=== PATIENT | male | born 1955 | race Caucasian/White ===

== ENCOUNTER → 2016-05-20 | Outpatient (CLI) | payer OTHER | END | disposition home or self-care (01) | LOC: LABPAT 10:33 | PROVIDERS: ATTEND Orthopaedic Surgery | DX: Z01.812 Encounter for preprocedural laboratory examination (principal) | CPT/HCPCS: 87070 ==

== ENCOUNTER 2016-06-02 05:49 | Inpatient (IN) | payer OTHER ==
[2016-05-22 13:50] VITALS: BMI 45.9
[~2016-06-02 05:49] MED LIST: DEXAMETHASONE SOD PHOSPHATE 10 MG/ML 1 ML VIAL IV ONE; LACTATED RINGERS 1,000 ML IV SCH; LIDOCAINE 1% 20 ML VIAL (10MG/ML) FOR IV START INTRADERMA PRN; MIDAZOLAM 2 MG/2 ML VIAL IV PRN; SCOPOLAMINE 1.5MG/72HR PATCH TRANSDERM ONE; ceFAZolin 3 GM in SODIUM CHLORIDE 0.9% 100 ML IVPB ONE
[2016-06-02] MEDS: ONDANSETRON 4 MG/2 ML VIAL IVP ONE ×2 (06:39→10:18)
[2016-06-02] MEDS ORDERED: HYDROmorphone (PF) 1 MG/ML ONE (07:14)
[2016-06-02] MEDS ORDERED: LIDOCAINE 1% INJ 10MG/ML (20 ML MDV) ONE (07:14)
[2016-06-02] MEDS ORDERED: PHENYLEPHRINE-0.9% NACL SYG 1 MG/10 ML SYRINGE ONE (07:14)
[2016-06-02] MEDS ORDERED: KETAMINE 10 MG/ML 20 ML VIAL ONE (07:14)
[2016-06-02] MEDS ORDERED: SUCCINYLCHOLINE CHLORIDE 100 MG/5 ML SYR IV ONE (07:14)
[2016-06-02] MEDS ORDERED: PROPOFOL 10 MG/ML 20 ML VIAL IV ONE (07:14)
[2016-06-02] MEDS ORDERED: ROCURONIUM BROMIDE 10 MG/ML 10 ML VIAL IV ONE (07:14)
[2016-06-02] MEDS ORDERED: NEOSTIGMINE 1 MG/ML 10 ML VIAL ONE (07:14)
[2016-06-02] MEDS ORDERED: fentaNYL (PF) 50 MCG/ML 2 ML AMP ONE (07:14)
[2016-06-02] MEDS ORDERED: GLYCOPYRROLATE 0.2 MG/ML 2 ML VIAL ONE (07:14)
[2016-06-02] MEDS ORDERED: MIDAZOLAM 2 MG/2 ML VIAL ONE (07:14)
[2016-06-02 07:25] LABS: Mean Platelet Volume 7.4
[2016-06-02 07:39] LABS: INR 1.2 (<1.1); Prothrombin Time 11.7 sec (9.0-12.0)
[2016-06-02] MEDS ORDERED: LACTATED RINGERS 1,000 ML IV ONE (08:00)
[2016-06-02] MEDS ORDERED: BISACODYL 10 MG SUPP RECTAL PRN (09:55)
[2016-06-02] MEDS ORDERED: MAGNESIUM HYDROXIDE 2,400 MG/10 ML CUP PO PRN (09:55)
[2016-06-02] MEDS ORDERED: TEMAZEPAM 15 MG CAP PO PRN (09:55)
[2016-06-02] MEDS ORDERED: NALOXONE 0.4 MG/ML 1 ML VIAL IV PRN (09:55)
[2016-06-02] MEDS ORDERED: NA PHOS,M-B/NA PHOS,DI-BA 133 ML ENEMA RECTAL PRN (09:55)
[2016-06-02] MEDS ORDERED: ONDANSETRON 4 MG/2 ML VIAL IVP PRN (09:55)
[2016-06-02] MEDS ORDERED: HYDROmorphone 1 MG/ML 1 ML SYRINGE IVP PRN ×3 (09:55)
[2016-06-02] MEDS: HYDROmorphone 1 MG/ML 1 ML SYRINGE IVP PRN ×4 (10:18→10:35)
[2016-06-02] MEDS ORDERED: KETOROLAC 30 MG/ML 1 ML VIAL IVP ONE (10:18)
--- NOTE | 2016-06-02 10:32 | XR ---
EXAMINATION TYPE: XR knee limited LT DATE OF EXAM: 06/02/2016 10:23 AM CLINICAL HISTORY: Postoperative evaluation Two views of the left knee are submitted. Identified are changes of total knee arthroplasty with fem oral and tibial components appearing well seated. Postsurgical soft tissue changes are noted. Align ment is anatomic.
[2016-06-02] MEDS: MEPERIDINE 50 MG/ML SYRINGE IVP ONE ×2 (10:53→10:55)
[2016-06-02] MEDS: LACTATED RINGERS 1,000 ML IV SCH ×2 (12:09→21:48)
[2016-06-02] MEDS: hydrOXYzine PAMOATE 25 MG CAP PO PRN ×2 (14:19→19:36)
[2016-06-02] MEDS: HYDROcodone/APAP 5-325MG 1 EACH TAB PO PRN ×2 (14:19→19:35)
[2016-06-02] MEDS: ceFAZolin 3 GM in SODIUM CHLORIDE 0.9% 100 ML IVPB SCH (15:36)
[2016-06-02] MEDS ORDERED: WARFARIN 5 MG TAB PO ONE (18:00)
--- NOTE | 2016-06-02 19:40 | CONS ---
DATE OF CONSULTATION: REASON FOR CONSULTATION: Recommendations regarding antihypertensive medications and postoperative complications management. Patient is a 61-year-old gentleman admitted for a left knee arthroplasty. Patient is clinically doing well at this point of time, did not pass gas. Denied any fever, chills, dysuria, nausea, vomiting. Patient is morbidly obese. REVIEW OF SYSTEMS: CONSTITUTIONAL: No fever, no malaise, no fatigue. HEENT: No recent visual problems or hearing problems. Denied any sore throat. CARDIOVASCULAR: No chest pain, orthopnea, PND, no palpitations, no syncope. PULMONARY: No shortness of breath, no cough, no hemoptysis. GASTROINTESTINAL: No diarrhea, no nausea, no vomiting, no abdominal pain. Normoactive bowel sounds. NEUROLOGICAL: No headaches, no weakness, no numbness. HEMATOLOGICAL: Denies any bleeding or petechiae. GENITOURINARY: Denies any burning micturition, frequency, or urgency. MUSCULOSKELETAL/RHEUMATOLOGICAL: Pain in the surgical site area. ENDOCRINE: Denies any polyuria or polydipsia. The rest of the 14 point review of systems is negative. Past medical history is significant for hearing problems, hypertension, morbid obesity, osteoarthritis. SOCIAL HISTORY: Denied any smoking. Patient drinks alcohol daily about 3 to 4 beers a day or sometimes lauren along with that. Denied any drug abuse. PHYSICAL EXAMINATION: VITAL SIGNS: Temperature 97.5, pulse of 95, respiratory rate of 16, blood pressure 152/76, saturating at 93% on room air. GENERAL: The patient is morbidly obese, alert and oriented x3, not in any acute distress. Well developed, well nourished. HEENT: Pupils are round and equally reacting to light. EOMI. No scleral icterus. No conjunctival pallor. Normocephalic, atraumatic. No pharyngeal erythema. No thyromegaly. CARDIOVASCULAR: S1 and S2 present. No murmurs, rubs, or gallops. PULMONARY: Chest is clear to auscultation, no wheezing or crackles. ABDOMEN: Soft, nontender, nondistended, normoactive bowel sounds. No palpable organomegaly. MUSCULOSKELETAL: No joint swelling or deformity. EXTREMITIES: Left knee defer to orthopedic surgery, patient has a wound VAC in place. NEUROLOGICAL: Gross neurological examination did not reveal any focal deficits. SKIN: No rashes. ASSESSMENT: 1. Left knee arthroplasty, postoperative day zero. Management as per primary service. 2. Hypertension. Hold off hydrochlorothiazide. Lisinopril to prevent perioperative hypotension. 3. Morbid obesity. Counseling was provided. 4. Alcohol abuse. Counseling was provided regarding that as well and recommend to watch for any withdrawals. 5. Thrombocytopenia secondary to chronic alcohol abuse. I do not have any labs available at this point of time which were ordered for tomorrow. 6. We will follow continue to follow the patient and will to recheck the lab. 7. Further recommendations as per laboratory data testing. Thank you for letting me participate in this patient's care. Patient's primary care physician is none.
[2016-06-02] MEDS: SENNOSIDES-DOCUSATE SODIUM 1 EACH TAB PO SCH (21:46)
[2016-06-03] MEDS: ceFAZolin 3 GM in SODIUM CHLORIDE 0.9% 100 ML IVPB SCH (00:17)
[2016-06-03] MEDS: HYDROcodone/APAP 5-325MG 1 EACH TAB PO PRN ×3 (04:42→21:25)
[2016-06-03] MEDS: LACTATED RINGERS 1,000 ML IV SCH (07:28)
[2016-06-03 07:30] LABS: Basophils % (A) 0 %; CHCM 34.6; Eosinophils % (A) 0 %; HCT 32.9 % (39.0-53.0); HDW 2.47; HGB 11.1 gm/dL (13.0-17.5); Luc # (Auto) 0.03; Luc % (Auto) 0; Lymphocytes # (A) 0.8 k/uL (1.0-4.8); Lymphocytes % (A) 9 %; MCH 35.4 pg (25.0-35.0); MCHC 33.8 g/dL (31.0-37.0); MCV 104.7 fL (80.0-100.0); Macrocytosis Slight; Mean Platelet Volume 8.5; Monocytes # (A) 0.5 k/uL (0-1.0); Monocytes % (A) 5 %; Neutrophils # (A) 8.1 k/uL (1.3-7.7); Neutrophils % (A) 86 %; RBC 3.14 m/uL (4.30-5.90); RDW 13.4 % (11.5-15.5); WBC 9.4 k/uL (3.8-10.6); WBC (Perox) 10.07
[2016-06-03 07:41] LABS: INR 1.2 (<1.1); Prothrombin Time 12.3 sec (9.0-12.0)
[2016-06-03 07:59] LABS: Appearance,Urine Cloudy (Clear); Bilirubin,Urine Negative (Negative); Glucose,Urine (UA) 4+ (Negative); Ketones,Urine Trace (Negative); Leukocyte Esterase,Urine Moderate (Negative); Nitrite,Urine Negative (Negative); PH, Urine 5.5 (5.0-8.0); Particle Count 6134; Protein,Urine 1+ (Negative); RBC,Urine >182 /hpf (0-5); Specific Gravity,Urine 1.017 (1.001-1.035); UA Billing (MACRO vs. MICRO) MICRO; Urobilinogen,Urine <2.0 mg/dL (<2.0); WBC,Urine 65 /hpf (0-5)
--- NOTE | 2016-06-03 08:26 | P.PN ---
Subjective Principal diagnosis: Status post left total knee arthroplasty This is a 61 year-old male post total knee arthroplasty. This is post-op day 1. The patient was evaluated at the bedside today. The patient denies nausea, vomiting, abdominal pain, shortness of breath, and chest pain this morning. He states his pain is controlled at this time. The patient's incision continued to drain over night and an arabella wrap was applied. The patient has not been up with physical therapy. Objective - Vital Signs Vital signs: Vital Signs Temp 97.8 F 06/03/16 07:00 Pulse 91 06/03/16 07:00 Resp 16 06/03/16 07:00 BP 137/70 06/03/16 07:00 Pulse Ox 93 L 06/03/16 07:00 Intake & Output 06/02/16 06/03/16 06/03/16 18:59 06:59 18:59 Intake Total 2700 500 Output Total 400 1200 300 Balance 2300 -700 -300 Intake: IV 2100 500 Lactated Ringers 1,000 ml 400 500 @ 100 mls/hr IV .Q10H ALANA Rx#:[id number] Oral 600 Output: Urine 300 1200 300 Uretheral (Nieto) 1200 300 Estimated Blood Loss 100 Other: Voiding Method Indwelling Catheter Indwelling Catheter # Voids 1 - Exam The patient does not appear in acute distress. Alert and orientated x3. Dressing is clean dry and intact. Incision appears fine with no erythema. There is a moderate amount of sanguinous drainage on his dressing. Calf is soft and nontender. Good foot and ankle motion without difficulty. Sensation and circulatory status is intact. - Labs CBC & Chem 7: 06/03/16 06:44 Labs: Abnormal Lab Results - Last 24 Hours (Table) 06/02/16 06/03/16 06/03/16 Range/Units 07:00 06:44 06:44 RBC 3.14 L (4.30-5.90) m/uL Hgb 11.1 L (13.0-17.5) gm/dL Hct 32.9 L (39.0-53.0) % MCV 104.7 H (80.0-100.0) fL MCH 35.4 H (25.0-35.0) pg Plt Count 97 L 96 L (150-450) k/uL Neutrophils # 8.1 H (1.3-7.7) k/uL Lymphocytes # 0.8 L (1.0-4.8) k/uL PT 12.3 H (9.0-12.0) sec Urine Protein (Negative) Urine Glucose (UA) (Negative) Urine Ketones (Negative) Urine Blood (Negative) Ur Leukocyte Esterase (Negative) Urine RBC (0-5) /hpf Urine WBC (0-5) /hpf 06/03/16 Range/Units 07:40 RBC (4.30-5.90) m/uL Hgb (13.0-17.5) gm/dL Hct (39.0-53.0) % MCV (80.0-100.0) fL MCH (25.0-35.0) pg Plt Count (150-450) k/uL Neutrophils # (1.3-7.7) k/uL Lymphocytes # (1.0-4.8) k/uL PT (9.0-12.0) sec Urine Protein 1+ H (Negative) Urine Glucose (UA) 4+ H (Negative) Urine Ketones Trace H (Negative) Urine Blood Large H (Negative) Ur Leukocyte Esterase Moderate H (Negative) Urine RBC >182 H (0-5) /hpf Urine WBC 65 H (0-5) /hpf Laboratory Tests 06/03/16 06:44 PT 12.3 H INR 1.2 Assessment and Plan (1) Primary localized osteoarthritis of left knee Status: Acute (2) Status post total left knee replacement not using cement Status: Acute Plan: 1. Continue pain control 2. Anticoagulation with Coumadin per protocol 3. Continue physical therapy and ambulation 4. Monitor incisional drainage, continue arabella wrap to left knee 5. Repeat UA today 6. Anticipate discharge home with homecare tomorrow
[2016-06-03] MEDS: LISINOPRIL 20 MG TAB PO SCH (16:42)
[2016-06-03] MEDS ORDERED: WARFARIN 7.5 MG TAB PO ONE (19:00)
[2016-06-03 19:09] LABS: Hemoglobin A1C 6.2 % (4.2-6.1)
--- NOTE | 2016-06-03 19:18 | PN ---
Patient is a 61-year-old admitted for left knee arthroplasty. Patient is clinically doing well postoperatively. I am holding antihypertensive medications. I will let Dr. Huynh tomorrow decide about discharging him on a lesser dose of antihypertensives or the same dose of antihypertensives, depending on his blood pressure today and tomorrow. Patient is otherwise clinically doing well. Blood pressure is essentially within normal limits. REVIEW OF SYSTEMS: CARDIOVASCULAR: No chest pain, no orthopnea, no PND, no palpitations. PULMONARY: Denied any shortness of breath. No cough or hemoptysis. GASTROINTESTINAL: No diarrhea, nausea or vomiting. No abdominal pain. Normoactive bowel sounds. NEUROLOGIC: No headaches, no weakness, no numbness. Medications were reviewed. PHYSICAL EXAMINATION: VITAL SIGNS: Temperature 98.0, pulse 90, respiratory rate of 17. Blood pressure is 139/91. Saturating at 93% on room air. GENERAL: Morbidly obese. HEENT: Pupils are round and equally reacting to light. EOMI. No scleral icterus. No conjunctival pallor. Normocephalic, atraumatic. No pharyngeal erythema. No thyromegaly. CARDIOVASCULAR: S1 and S2 present. No murmurs, rubs, or gallops. PULMONARY: Chest is clear to auscultation, no wheezing or crackles. ABDOMEN: Soft, nontender, nondistended, normoactive bowel sounds. No palpable organomegaly. MUSCULOSKELETAL: Deferred to Orthopedic Surgery. EXTREMITIES: No cyanosis, clubbing, or pedal edema. NEUROLOGICAL: Gross neurological examination did not reveal any focal deficits. SKIN: No rashes. Laboratory data was reviewed. Patient is thrombocytopenic; unsure of the exact etiology of thrombocytopenia, though. ASSESSMENT AND PLAN: 1. Left knee arthroplasty, postoperative day one. Pain management and DVT prophylaxis per primary service. 2. Hypertension. Continue to hold antihypertensives Lisinopril and hydrochlorothiazide. Further management as mentioned above. 3. Morbid obesity. Counseling was provided. 4. Chronic alcohol abuse leading to thrombocytopenia and bone marrow suppression. Counseling regarding alcohol abuse was provided as well.
[2016-06-03] MEDS: SENNOSIDES-DOCUSATE SODIUM 1 EACH TAB PO SCH (20:19)
[2016-06-04 02:51] VITALS: RESP 16
--- NOTE | 2016-06-04 05:41 | OP ---
DATE OF SERVICE: 06/02/2016 SURGEON: WILFREDO ROBLES DO FOUNDRY METALLURGIST: Emani Jolly NP PREOPERATIVE DIAGNOSIS: Severe tricompartment degenerative joint disease of the left knee. POSTOPERATIVE DIAGNOSIS: Severe tricompartment degenerative joint disease of the left knee. OPERATION: Left total knee replacement arthroplasty utilizing [employer] ANESTHESIA: General. ESTIMATED BLOOD LOSS: SPECIMENS REMOVED: COMPLICATIONS: OPERATIVE FINDINGS: DESCRIPTION OF THE PROCEDURE: The patient was taken to the operative suite and placed in the supine position. General anesthesia was performed by the department of anesthesiology. A Betadine scrub was carried out over the left knee from the mid thigh to mid calf. Sterile drapes applied in the usual manner. The pneumatic tourniquet was then inflated. A medial parapatellar incision was developed. Further dissection was carried through the subcutaneous tissue. Medial retinaculum was incised. The patella was then everted and dislocated laterally and the leg was brought into flexion and held with a leg chacko. The intramedullary cutting guide and jig was utilized for appropriate cuts in preparation for a size 10 left knee component. Provisionary cuts were developed and the provisionary component was held and impacted into position and stable bone component interface was noted. Alignment and stability were well maintained. The tibial cutting guide and jig was brought in position and appropriate tibial wafer cut was developed. The alignment was maintained and both menisci, both medial and lateral, were incised at this time. The appropriate metal backed tray size 7 was chosen and temporary 12 mm spacer was inserted and the knee was checked for alignment and stability. Correction of the medial prolapse was noted. The tibial tray was marked for position and with the leg in position appropriate peg holes were drilled in preparation for the final component. The trunnion component was also maintained and peg holes were initiated at this time. With the patella everted, a shelving planer was utilized in preparation for a selected size 41mm component. All provisional components were removed. Copious antibiotic solution was utilized in preparing the bone. All of the provisionary components were removed as the knee was brought in flexion. Pulsavac antibiotic solution irrigation was utilized in preparing for the final components. A size 7 trabecular metal tibial tray was brought into position and impacted into position. The bone component as well as spacer was well maintained. The size 10 final component was brought into position, impacted and good bone component interface noted. The final tibial spacer was placed in position and knee brought into flexion. The knee was brought into extension. The size 35 mm patellar component was placed in peg hole, impacted and component bone interface well maintained. With the knee brought back in the flexion and held in leg chacko , the final 12 mm polyethylene component was inserted into the tray and aligned and marked into position. The knee was then stable and well maintained for function motion. The area was irrigated copiously. With the knee in slight flexion, the medial retinaculum was approximated with #3 Vicryl suture in a horizontal mattress fashion. The retinaculum was then reinforced with #2 Vicryl suture in running fashion. The subcutaneous tissue approximated with 2-0 Vicryl suture in running fashion. The skin was approximated with 3-0 Quill suture in subcuticular fashion. The incision is sealed with Dermabond and sterile pressure dressing was applied.The patient was transferred to the recovery room in satisfactory postop condition. GROSS PATHOLOGY: There was evidence of a severe tricompartment degenerative joint disease of the left knee. ANASTASIYA
[2016-06-04] MEDS: HYDROcodone/APAP 5-325MG 1 EACH TAB PO PRN (07:46)
[2016-06-04] MEDS: LISINOPRIL 20 MG TAB PO SCH (07:48)
[2016-06-04 08:03] VITALS: BP 134/71; PULSE 82; TEMP 97.9
[2016-06-04 08:03] LABS: INR 1.3 (<1.1)
--- NOTE | 2016-06-04 08:29 | P.DS ---
Providers Date of admission: 06/02/16 05:49 Expected date of discharge: 06/04/16 Attending physician: Kolby Álvarez Consults: 06/02/16 09:55 Consult Physician Routine Consulting Provider: Carlos Huynh Consult Reason/Comments: medical management Do you want consulting provider notified?: Yes Primary care physician: Stated None - Discharge Diagnosis(es) (1) Primary localized osteoarthritis of left knee Current Visit: Yes Status: Acute (2) Status post total left knee replacement not using cement Current Visit: Yes Status: Acute Hospital Course: This is a pleasant 61-year-old male last seen in our office with complaints of left knee pain. Patient has known history of degenerative arthritis of the left knee and presented to discuss options. After discussion and consideration , the patient elected to proceed with a left total knee arthroplasty. Patient was seen preoperatively, and medically cleared for surgery by Dr. Rouse. Patient was admitted to [facility] underwent left total knee arthroplasty on 06/02/[address] Álvarez. The procedure was performed without complications or sequelae. The patient is seen and evaluated at bedside today. Pain is well-controlled. Patient has no new complaints today and denies any fevers, chills, nausea, vomiting, or shortness of breath. Vital signs are stable. Dressing is clean dry and intact. Incision looks fine with no erythema or active drainage. Calf is soft and nontender. Patient has full foot and ankle motion without difficulty. Patient's left lower extremity is neurovascularly intact. The patient is orthopedically stable for discharge home with homecare today. Pertinent Studies: Laboratory Tests 06/03/16 06/04/16 06:44 07:14 WBC 9.4 RBC 3.14 L Hgb 11.1 L Hct 32.9 L Plt Count 96 L PT 13.0 H INR 1.3 Patient Condition at Discharge: Stable Plan - Discharge Summary New Discharge Prescriptions: Aspirin 325 mg PO DAILY #30 tab HYDROcodone/APAP 5-325MG [[place] 5] 1 - 2 each PO Q4-6H PRN #90 tab PRN Reason: Pain Sennosides-Docusate Sodium [Senokot-S] 2 tab PO DAILY #30 tablet Warfarin [Coumadin] 2.5 mg PO DIRECTED #30 tab Discharge Medication List Lisinopril-Hctz 20-25 mg [Zestoretic 20-25] 0.5 tab PO DAILY 05/22/16 [History] Aspirin 325 mg PO DAILY #30 tab 06/03/16 [Rx] HYDROcodone/APAP 5-325MG [[place] 5] 1 - 2 each PO Q4-6H PRN #90 tab 06/03/16 [Rx] Sennosides-Docusate Sodium [Senokot-S] 2 tab PO DAILY #30 tablet 06/03/16 [Rx] Warfarin [Coumadin] 2.5 mg PO DIRECTED #30 tab 06/03/16 [Rx] Follow up Appointment(s)/Referral(s): Kolby Álvarez DO [Doctor of Osteopathic Medicine] - 2 Weeks Activity/Diet/Wound Care/Special Instructions: Home Care arrangements being made by [facility] - call with any questions/concerns. Home care order faxed by the hospital on 06/03/16. Walker - has at home CPM - no CPM ([facility] will not cover) Weightbearing as tolerated with a walker Coumadin 2.5 mg 1 by mouth every other day for 7 days then take Aspirin 325mg daily for 1 month May shower in 3 days if no drainage from incision Keep incision clean and dry Call [facility] [phone] with questions or concerns Discharge Disposition: HOME WITH HOME HEALTH SERVICES
--- NOTE | 2016-06-05 11:22 | PN ---
DATE OF SERVICE: 06/04/2016 This 61-year-old gentleman admitted with left knee arthroplasty, improved significantly. No chest pain. No palpitations. No fever. Blood pressure is well maintained. The patient has thrombocytopenia, which is stable. On exam, alert and oriented x3. Pulse is 82, blood pressure 134/71, respirations 16, temperature is 97.8, pulse ox 94% on room air. HEENT: Conjunctivae normal. NECK: No jugular venous distension. CARDIOVASCULAR: S1 and S2 muffled. RESPIRATORY: Breath sounds diminished in the bases. No rhonchi. No crackles. ABDOMEN: Soft, nontender. LEGS: Status post surgery. NERVOUS SYSTEM: No focal deficit. LABS: Hemoglobin 11.1, platelets are 96. UA noted. RBCs present. ASSESSMENT: 1. Status post left total knee arthroplasty. 2. Hypertension. 3. Morbid obesity. 4. History of EtOH. 5. Thrombocytopenia. 6. Increased MCV. 7. Degenerative joint disease. RECOMMENDATIONS AND DISCUSSION: Recommend to continue current medications, continue with symptomatic treatment. Otherwise, follow up with the primary physician, physician. Follow up with Orthopedic Surgery. Further recommendations to follow. CURLYD
== END 2016-06-04 13:13 | disposition home health service (06) | DRG 470 ==
LOC: 2ORMAIN 05:49 → 3SUR 09:58
PROVIDERS: ADMIT Orthopaedic Surgery; ATTEND Orthopaedic Surgery
PROC: 0SRD0JA Replacement of Left Knee Joint with Synthetic Substitute, Uncemented, Open Approach (ICD-10-PCS; principal; 2016-06-02 07:00)
DX: M17.12 Unilateral primary osteoarthritis, left knee (principal); D69.59 Other secondary thrombocytopenia; E66.01 Morbid (severe) obesity due to excess calories; I10 Essential (primary) hypertension; M21.162 Varus deformity, not elsewhere classified, left knee; F10.10 Alcohol abuse, uncomplicated
CPT/HCPCS: 81001; 83036; 85025; 85049; 85610; 87086; 88300; 94760

== ENCOUNTER → 2021-01-07 | Outpatient (CLI) | payer OTHER | END | disposition home or self-care (01) | LOC: LABPAT 10:28 | PROVIDERS: ATTEND Orthopaedic Surgery | DX: M17.11 Unilateral primary osteoarthritis, right knee (principal); Z22.322 Carrier or suspected carrier of Methicillin resistant Staphylococcus aureus | CPT/HCPCS: 87070 ==

== ENCOUNTER 2021-02-24 11:24 | Day surgery (SDC) | payer OTHER ==
[2021-02-20 14:59] VITALS: BMI 46.6
--- NOTE | 2021-02-23 12:17 | HP ---
HISTORY AND PHYSICAL REASON FOR ADMISSION: Surgery scheduled for 02/24/2021. HISTORY OF PRESENT ILLNESS: Bryant Olivia is a 65-year-old gentleman seen with symptomatic right knee osteoarthritis. We discussed options for treatment. He elected to proceed with right total knee arthroplasty. Consent was obtained. Medical clearance was provided by the [facility]. PAST MEDICAL HISTORY: Hypertension, COPD. PAST SURGICAL HISTORY: Lumbar spine surgery. Eye surgery. MEDICATIONS: Carvedilol, furosemide, spironolactone. ALLERGIES: NONE. SOCIAL HISTORY: Denies tobacco use. PHYSICAL EVALUATION OF THE RIGHT KNEE: Range of motion. -3/4 to 90 degrees. Moderate effusion. Tenderness medial joint line. Crepitus medial patellofemoral compartments range of motion. Pain with patellofemoral compression. Ligaments stable. Hip rotation without pain. His distal neurovascular exam is intact. RADIOGRAPHS: Radiographs of the right knee reveal severe osteoarthritic changes. IMPRESSION: 1. Right knee osteoarthritis. 2. Hypertension. PLAN: Right total knee arthroplasty. Surgery scheduled for 02/24/2021. MMODL / IJN: [id number] /
[~2021-02-24 11:24] MED LIST changes: +ACETAMINOPHEN TAB 500 MG TAB PO PRN; -DEXAMETHASONE SOD PHOSPHATE 10 MG/ML 1 ML VIAL IV ONE; +DEXAMETHASONE SOD PHOSPHATE 4 MG/ML 1 ML VIAL IV ONE; -LIDOCAINE 1% 20 ML VIAL (10MG/ML) FOR IV START INTRADERMA PRN; +MELOXICAM 7.5 MG TAB PO PRN; -MIDAZOLAM 2 MG/2 ML VIAL IV PRN; +ONDANSETRON 4 MG/2 ML VIAL IVP ONE; -SCOPOLAMINE 1.5MG/72HR PATCH TRANSDERM ONE; +TRANEXAMIC ACID 1,000 MG in SODIUM CHLORIDE 0.9% 100 ML IVPB PRN; -ceFAZolin 3 GM in SODIUM CHLORIDE 0.9% 100 ML IVPB ONE; +ceFAZolin 3 GM in SODIUM CHLORIDE 0.9% 100 ML IVPB PRN
[2021-02-24 12:56] LABS: HCT 41.2 % (39.0-53.0); HGB 14.7 gm/dL (13.0-17.5); MCH 36.7 pg (25.0-35.0); MCHC 35.8 g/dL (31.0-37.0); MCV 102.4 fL (80.0-100.0); Macrocytosis Slight; Mean Platelet Volume 8.8; RBC 4.02 m/uL (4.30-5.90); RDW 14.2 % (11.5-15.5); WBC 4.6 k/uL (3.8-10.6)
[2021-02-24 13:26] LABS: Platelet Count 88 k/uL (150-450)
[2021-02-24] MEDS ORDERED: ROPIVACAINE/EPI/CLONIDINE/KET 50 ML SYRINGE MISCELLANE PRN (15:04)
[2021-02-24] MEDS ORDERED: NEOSTIGMINE 1 MG/ML 10 ML VIAL ONE (15:35)
[2021-02-24] MEDS ORDERED: MIDAZOLAM 2 MG/2 ML VIAL ONE (15:35)
[2021-02-24] MEDS ORDERED: SODIUM CHLORIDE 0.9% 100 ML BAG ONE (15:35)
[2021-02-24] MEDS ORDERED: ROCURONIUM 10 MG/ML (5 ML VIAL) IV ONE (15:35)
[2021-02-24] MEDS ORDERED: fentaNYL (PF) 50 MCG/ML 2 ML AMP ONE (15:35)
[2021-02-24] MEDS ORDERED: LIDOCAINE 1% INJ 10MG/ML (20 ML MDV) ONE (15:35)
[2021-02-24] MEDS ORDERED: TRANEXAMIC ACID 1,000 MG/10 ML VIAL ONE (15:35)
[2021-02-24] MEDS ORDERED: GLYCOPYRROLATE 0.2 MG/ML 2 ML VIAL ONE (15:35)
[2021-02-24] MEDS ORDERED: HYDROmorphone (PF) 1 MG/ML ONE (15:35)
[2021-02-24] MEDS ORDERED: PROPOFOL 10 MG/ML 20 ML VIAL IV ONE (15:35)
[2021-02-24] MEDS ORDERED: SUCCINYLCHOLINE CHLORIDE 100 MG/5 ML SYR IV ONE (15:35)
[2021-02-24] MEDS: ROPIVACAINE 246.25 MG, EPINEPHrine 0.5 MG, KETOROLAC 30 MG, cloNIDine HCL/PF 80 MCG, WA... MISCELLANE ONE ×10 (16:27→16:52)
[2021-02-24] MEDS ORDERED: ceFAZolin 1,000 MG in SODIUM CHLORIDE 0.9% 1,000 ML IRRIGATION ONE (16:30)
[2021-02-24] MEDS ORDERED: HYDROcodone/APAP 7.5-325MG 1 EACH TAB PO PRN (17:37)
[2021-02-24] MEDS ORDERED: HYDROmorphone 1 MG/ML 1 ML SYRINGE IVP PRN (17:37)
[2021-02-24] MEDS ORDERED: ONDANSETRON 4 MG/2 ML VIAL IVP PRN (17:37)
[2021-02-24] MEDS ORDERED: HYDROcodone/APAP 5-325MG 1 EACH TAB PO PRN (17:37)
[2021-02-24] MEDS ORDERED: NALOXONE 0.4 MG/ML 1 ML VIAL IV PRN (17:37)
[2021-02-24] MEDS ORDERED: HYDROmorphone 0.5 MG/0.5 ML SYRINGE IVP PRN (17:37)
[2021-02-24] MEDS ORDERED: HYDROmorphone 0.2 MG/1 ML SYRINGE IVP PRN (17:37)
--- NOTE | 2021-02-24 17:37 | P.OP ---
Date of Procedure: 02/24/21 Preoperative Diagnosis: Right knee osteoarthritis Postoperative Diagnosis: Right knee osteoarthritis Procedure(s) Performed: Right total knee arthroplasty Implants: 1. Depuy attune size 9 right cruciate retaining cemented femur 2. Depuy attune size 9 fixed bearing cemented tibial baseplate 3. Depuy attune size 9 fixed bearing cruciate retaining 10 mm polyethylene tibial insert 4. Depuy attune 38 mm all polyethylene cemented patella Anesthesia: GETA, local Surgeon: David Morin Casing Inspector #1: Robin Gomez Estimated Blood Loss (ml): 45 Pathology: other (Bone) Condition: stable Disposition: PACU Indications for Procedure: 65-year-old patient seen with symptomatic right knee osteoarthritis. After having treatment options discussed, he elected to proceed with right total knee arthroplasty. Operative Findings: See description of procedure Description of Procedure: Patient was taken to the operative suite. Patient underwent a general anesthetic by the department of anesthesia. Patient was given preoperative IV intake antibiotics and TXA. A well-padded tourniquet was placed about the right lower extremity. The lower extremity was then prepped and draped in the normal sterile orthopedic fashion. The extremity was elevated, a tourniquet was insufflated to 300. A standard anterior incision was made sharply through skin. Dissection was taken down through the subcutaneous soft tissues down to the extensor mechanism. A medial arthrotomy was performed, patella was everted and knee was flexed. There was advanced osteoarthritis noted. I introduced my distal intramedullary femoral drill. I then introduced the distal femoral cutting jig. Willie FRASER secured the cutting jig with 2 pins. I held retractors in position while Willie FRASER performed the distal femoral resection through the guide area we now removed her distal femoral cutting guide. We now placed our 4-in-1 femoral cutting block and positioned and it was secured with 2 pins by Willie FRASER while I held the block in position. The distal femoral finishing was now completed. A proximal tibial cutting guide was positioned. I held the guide in the appropriate position with both hands well Willie FRASER inserted stabilizing pins into the guide. Proximal tibial cut was made. We now placed a trial femoral component into position, along with an appropriate size tibial tray and insert. We now took the knee through range of motion and had full extension good flexion and good overall soft tissue balance noted. The patella was everted and stabilized with 2 towel clips held by Willie FRASER while I performed a flush with patellar quad tendon utilizing a fresh sawblade. We templated the patella, appropriate drill holes were made. An appropriate trial patella was positioned, knee was taken through full range of motion with the patella tracking very nicely. The trial patella was removed. Drill holes were made through the femoral component. All trial components were removed after marking off the appropriate rotation of the tibia. Retractors were now positioned along the proximal tibia. An appropriate keel punch was made with the appropriate size tibial guide by myself on Willie FRASER assisted by holding retractors. At this point appropriate size implants were chosen and opened. The joint was irrigated copiously with pulse lavage mechanical irrigation. The posterior capsule was infiltrated with local analgesic. The wound was irrigated with pulse lavage mechanical irrigation. We mixed antibiotic methylmethacrylate. We placed the knee into flexion. We placed multiple retractors assisted by Willie FRASER to expose the proximal tibia. Once the methyl methacrylate was ready, the tibial component was cemented into place removing any excess methylmethacrylate form by both myself and Willie FRASER. The femoral component was cemented into place removing the removing any excess methylmethacrylate performed by both myself and Willie FRASER. We then inserted the appropriate size polyethylene tibial insert. We made sure that it was locked into position. We took the knee into full extension, and then back in a flexion making sure we had removed any excess methylmethacrylate. The patellar component was then cemented down and secured with clamp. Excess methylmethacrylate removed. We kept the knee in full extension, patellar clamp in position until methylmethacrylate had hardened. Once it had hardened the patellar clamp was removed. The knee was taken through full range of motion. The patella tracked nicely. There was good soft tissue balancing. The tourniquet was now released. Additional hemostasis was achieved via electrocautery. A second gram of TXA was given. The wound again was irrigated with pulse lavage mechanical irrigation. The superficial soft tissues were infiltrated local analgesic. The extensor mechanism was repaired with Ethibond. We checked the repair with range of motion and it was stable. The subcutaneous soft tissues were repaired with Vicryl in layers. The skin was approximated with pernio/Dermabond. Sterile dressings were applied followed by loose web roll and Reji bandage. The patient was transferred to a bed, and taken to recovery in stable and satisfactory condition. Willie FRASER assisted with this complex procedure.
[2021-02-24] MEDS ORDERED: ONDANSETRON 4 MG/2 ML VIAL IVP ONE (18:10)
[2021-02-24] MEDS: HYDROmorphone 0.5 MG/0.5 ML SYRINGE IVP PRN ×2 (18:12→18:33)
--- NOTE | 2021-02-24 18:19 | XR ---
EXAMINATION TYPE: XR knee limited RT DATE OF EXAM: 02/24/2021 COMPARISON: NONE TECHNIQUE: Two views submitted HISTORY: Post op FINDINGS: There is a prosthetic knee in near anatomic alignment. There is soft tissue edema and emphysema. Galindo rgical idalia noted. IMPRESSION: 1. Postoperative change. Appears in near-anatomic alignment
[2021-02-24] MEDS ORDERED: HYDROmorphone 0.5 MG/0.5 ML SYRINGE IVP ONE (19:35)
[2021-02-24] MEDS: LACTATED RINGERS 1,000 ML IV SCH (20:25)
[2021-02-24] MEDS ORDERED: SENNOSIDES-DOCUSATE SODIUM 1 EACH TAB PO SCH (21:00)
[2021-02-24] MEDS: ceFAZolin 3 GM in SODIUM CHLORIDE 0.9% 100 ML IVPB SCH (23:31)
[2021-02-25 02:23] VITALS: RESP 16
[2021-02-25] MEDS ORDERED: LORazepam 2 MG/ML INJ IV PRN ×3 (03:23)
--- NOTE | 2021-02-25 03:23 | P.CONS ---
History of Present Illness - Reason for Consult Consult date: 02/24/21 medical management Requesting physician: David Morin - Chief Complaint right total knee replacement - History of Present Illness 65-year-old male with hypertension, chronic thrombocytopenia secondary to liver cirrhosis, history of alcohol abuse Patient comes in for scheduled right total knee arthroplasty patient tolerated procedure well no observed immediate complications denies any chest pain or trouble breathing denies any nausea vomiting he tolerated by mouth intake pain is well controlled Patient admits to chronic daily alcohol consumption he claims that his last drink was he's trying to cut back. Patient also has history of liver cirrhosis secondary to alcoholism resulting in thrombocytopenia Review of Systems Pertinent positives as noted in HPI. All other systems were reviewed and are negative Past Medical History Past Medical History: Hearing Disorder / Deafness, Hypertension, Osteoarthritis (OA) Additional Past Medical History / Comment(s): [place] bilaterally. History of Any Multi-Drug Resistant Organisms: None Reported Past Surgical History: Back Surgery Additional Past Surgical History / Comment(s): 06/02/16 Total L knee arthroplasty. LEFT KNEE SURGERY-ARTHROSCOPIC, COLONOSCOPY, BILAT CATARACTS REMOVED WITH LENS IMPLANTS Past Anesthesia/Blood Transfusion Reactions: No Reported Reaction Past Psychological History: No Psychological Hx Reported Additional Psychological History / Comment(s): Pt resides with his spouse. He is independent. Smoking Status: Never smoker Past Alcohol Use History: Daily Additional Past Alcohol Use History / Comment(s): He drinks beer and lauren. Past Drug Use History: None Reported - Past Family History Mother Family Medical History: No Reported History Additional Family Medical History / Comment(s): Mother was healthy. Father Family Medical History: CVA/TIA Additional Family Medical History / Comment(s): Father of complications from a CVA in his 60's. Medications and Allergies Home Medications Medication Instructions Recorded Confirmed Type Carvedilol [Coreg] 12.5 mg PO BID 02/20/21 02/20/21 History Furosemide [Lasix] 80 mg PO DAILY 02/20/21 02/20/21 History QUEtiapine [SEROquel] 50 mg PO HS PRN 02/20/21 02/20/21 History Spironolactone 100 mg PO DAILY 02/20/21 02/20/21 History Allergies Allergy/AdvReac Type Severity Reaction Status Date / Time No Known Allergies Allergy Verified 02/24/21 12:06 Physical Exam Vitals: Vital Signs Temp Pulse Pulse Pulse Pulse Resp BP 02/25/21 02:21 97.7 F 56 L 16 02/24/21 21:41 98.7 F 57 L 17 02/24/21 20:40 73 16 02/24/21 20:19 62 16 02/24/21 20:10 61 16 02/24/21 19:40 64 16 02/24/21 19:25 60 16 02/24/21 19:10 63 16 02/24/21 18:55 65 16 02/24/21 18:40 63 16 02/24/21 18:25 61 16 02/24/21 18:10 61 16 02/24/21 17:56 97.6 F 67 16 02/24/21 14:47 97.3 F L 62 16 125/63 02/24/21 14:37 98.2 F 60 16 127/66 02/24/21 14:27 97.9 F 60 16 130/62 02/24/21 12:05 97.8 F 76 16 BP BP BP Pulse Ox 02/25/21 02:21 128/77 95 02/24/21 21:41 128/83 94 L 02/24/21 20:40 139/68 96 02/24/21 20:19 137/66 95 02/24/21 20:10 137/66 93 L 02/24/21 19:40 137/66 95 02/24/21 19:25 145/72 94 L 02/24/21 19:10 145/72 94 L 02/24/21 18:55 156/79 96 02/24/21 18:40 156/75 95 02/24/21 18:25 156/75 96 02/24/21 18:10 154/72 97 02/24/21 17:56 154/72 98 02/24/21 14:47 98 02/24/21 14:37 97 02/24/21 14:27 96 02/24/21 12:05 140/73 96 Intake and Output 02/24/21 02/24/21 02/25/21 14:59 22:59 06:59 Intake Total 635 2050 Output Total 45 Balance 635 2005 Intake: IV 300 851 Oral 1200 Blood Product 335 Platelet Pheresis Pas 335 Psoralen Unit [id number] Output: Estimated Blood Loss 45 Other: Weight 147 kg 147 kg Constitutional: No acute distress, conversant, pleasant, morbidly obese Eyes: Anicteric sclerae, moist conjunctiva, Pupils equal round reactive to light ENMT: NC/AT Oropharynx clear, no erythema, or exudates Neck: Supple, FROM, no masses, or JVD No carotid bruits No thyromegaly Lungs: Clear to auscultation Clear to percussion Normal respiratory effort, no accessory muscle use Cardiovascular: Heart regular in rate and rhythm, No murmurs, gallops, or rubs No peripheral edema Abdominal: Soft Nontender, no guarding, rebound or rigidity Abdomen moving with respiration Normoactive bowel sounds No hepatomegaly, No splenomegaly No palpable mass No abdominal wall hernia noted Skin: Normal temperature, tone, texture, turgor Bruising and ecchymosis over bilateral forearms over the dorsum Extremities: No digital cyanosis No clubbing Pedal pulses intact and symmetrical Radial pulses intact and symmetrical No calf tenderness Psychiatric: Alert and oriented to person, place and time Appropriate affect fair judgement Neuro Muscles Strength 5/5 in all 4 extremities with some limited exam over the right lower extremity due to surgery Sensation to light touch grossly present throughout Cranial nerves II-XII grossly intact No focal sensory deficits Lymphatics: no palpable cervical or supraclavicular , or inguinal lymph nodes Results CBC & Chem 7: 02/24/21 12:26 Labs: Abnormal Lab Results - Last 24 Hours (Table) 02/24/21 Range/Units 12:26 RBC 4.02 L (4.30-5.90) m/uL MCV 102.4 H (80.0-100.0) fL MCH 36.7 H (25.0-35.0) pg Plt Count 88 L (150-450) k/uL Assessment and Plan Assessment: Right total knee arthroplasty Pain control and DVT prophylaxis per orthopedics PT Hypertension resume home blood pressure medications Liver cirrhosis Thrombocytopenia Chronic alcoholism Monitor for alcohol withdrawal syndrome Ativan per CIWA scale Thiamine by mouth Check CBC and CMP in the morning Full code Thank you for allowing us to participate in the care of this patient. Do not hesitate to contact us with questions. Someone can be reached from the [facility] [place] hospitalist group at all hours of the day at [phone].
[2021-02-25] MEDS: LACTATED RINGERS 1,000 ML IV SCH (05:08)
[2021-02-25 07:17] LABS: ALT 29 U/L (4-49); AST 59 U/L (17-59); African American GFR (CKD) 66 (>60 ml/min/1.73 sqM); Albumin 3.4 g/dL (3.5-5.0); Alkaline Phosphatase 97 U/L (38-126); Anion Gap 12 mmol/L; Basophils % (A) 0 %; Blood Urea Nitrogen 31 mg/dL (9-20); Calcium 8.9 mg/dL (8.4-10.2); Carbon Dioxide 20 mmol/L (22-30); Chloride 102 mmol/L (98-107); Eosinophils % (A) 0 %; Globulin 3.5 g/dL; Glucose 164 mg/dL (74-99); HCT 38.8 % (39.0-53.0); Lymphocytes # (A) 0.7 k/uL (1.0-4.8); Lymphocytes % (A) 9 %; MCH 36.3 pg (25.0-35.0); MCHC 33.6 g/dL (31.0-37.0); Macrocytosis Moderate; Mean Platelet Volume 8.8; Monocytes # (A) 0.4 k/uL (0-1.0); Monocytes % (A) 4 %; Neutrophils % (A) 86 %; Non-African American GFR(CKD) 57 (>60 ml/min/1.73 sqM); Potassium 4.6 mmol/L (3.5-5.1); RBC 3.59 m/uL (4.30-5.90); RDW 13.4 % (11.5-15.5); Sodium 134 mmol/L (137-145); Total Bilirubin 1.2 mg/dL (0.2-1.3); Total Protein 6.9 g/dL (6.3-8.2); WBC 8.2 k/uL (3.8-10.6)
[2021-02-25] MEDS ORDERED: carvediloL 12.5 MG TAB PO SCH (07:30)
[2021-02-25] MEDS ORDERED: THIAMINE 100 MG TAB PO SCH (07:30)
[2021-02-25] MEDS: ceFAZolin 3 GM in SODIUM CHLORIDE 0.9% 100 ML IVPB SCH (07:38)
[2021-02-25 07:40] LABS: MCV 108.2 fL (80.0-100.0); Platelet Count 77 k/uL (150-450)
[2021-02-25 07:48] VITALS: BP 128/77; PULSE 68; TEMP 98.3
[2021-02-25] MEDS ORDERED: ENOXAPARIN 30 MG/0.3 ML SYRINGE SQ SCH (09:00)
[2021-02-25] MEDS ORDERED: FUROSEMIDE 80 MG TAB PO SCH (09:00)
[2021-02-25] MEDS ORDERED: SPIRONOLACTONE 25 MG TAB PO SCH (09:00)
--- NOTE | 2021-02-25 10:20 | P.PN ---
<Raheem Machuca - Last Filed: 02/25/21 17:36> Subjective Progress Note Date: 02/25/21 Hospital course: Patient is a very pleasant 65-year-old male with a past medical history of hyp ertension, chronic thrombocytopenia secondary to liver cirrhosis, and history of alcohol use/abuse. He is currently admitted under Gen. orthopedic surgery team with Dr. Morin secondary to right knee osteoarthritis and is currently status post total right knee arthroplasty. We have been consulted for continued medical management throughout patient's hospitalization. Physical exam: Patient was seen and fully evaluated at the bedside this morning. He reports feeling great and states postoperative pain is controlled. Patient has been ambulatory back and forth to restroom and worked with PT. Patient medically stable at this time, vital signs reviewed and stable. Patient showing no signs and symptoms of alcohol withdrawal at this time. Labs reviewed showing expected slight drop in hemoglobin from 14.7 down to 13.0, mild hyponatremia with sodium of 134, BUN of 31, creatinine 1.32, and GFR of 57 unknown baseline renal function likely chronic. Vital signs reviewed and stable. General: Nontoxic, no distress and appears stated age. Derm: Skin warm and dry, normal coloration for ethnicity. Head: Atraumatic, normocephalic and symmetric. Eyes: EOMs intact, no lid lag, and anicteric sclera Mouth: no lip lesions, mucus membranes moist Cardiovascular: regular rate and rhythm with normal S1S2, no murmur, positive posterior tibial pulses bilaterally, and cap refill < 2 seconds. Lungs: Respirations even, regular, and unlabored on room air. Lungs CTA bilaterally, no rhonchi, no rales, no wheezing, and no accessory muscle usage. Abdominal: soft, nontender to palpation, no guarding, no appreciable organomegaly Ext: ROM intact. No gross muscle atrophy, no edema, no contractures Neuro: Speech clear, face symmetrical and CN II-XII grossly intact with no noted focal neuro deficits Psych: Alert and oriented to person, place, time, and situation. Appropriate and pleasant affect. Assessment and Plan of Care: Liver cirrhosis Thrombocytopenia, chronic Alcoholism with long-standing history of alcohol use/abuse [facility] protocol and monitor for signs and symptoms of alcohol withdrawal. Seizure precautions, fall precautions, and aspiration precautions. Daily multivitamin, thiamine, and folic acid. Continued encouragement and education on the benefits of alcohol cessation and risks of continued use/abuse. Status post total right knee arthroplasty DVT prophylaxis, PT/OT, weightbearing, and pain control per primary admitting orthopedic surgery team. DVT prophylaxis currently with Lovenox Hypertension Monitor vital signs and continue daily medication regimen. Thank you for allowing us to participate in the care of this pleasant patient. Do not hesitate to contact us with questions. Someone can be reached from the [facility] hospitalist group all hours of the day at [phone] or via perfect serve. Objective - Vital Signs Vital signs: Vital Signs Temp 98.3 F 02/25/21 07:29 Pulse 68 02/25/21 07:29 Resp 16 02/25/21 07:29 BP 121/74 02/25/21 07:29 Pulse Ox 98 02/25/21 07:29 Intake & Output 02/24/21 02/25/21 02/25/21 18:59 06:59 18:59 Intake Total 1236 1550 Output Total 45 Balance 1191 1550 Weight 147 kg 147 kg Intake: IV 901 250 Oral 1300 Blood Product 335 Platelet Pheresis Pas 335 Psoralen Unit [id number] Output: Estimated Blood Loss 45 Other: # Voids 1 - Labs CBC & Chem 7: 02/25/21 05:47 02/25/21 05:47 Labs: Abnormal Lab Results - Last 24 Hours (Table) 02/24/21 02/25/21 02/25/21 Range/Units 12:26 05:47 05:47 RBC 4.02 L 3.59 L (4.30-5.90) m/uL Hct 38.8 L (39.0-53.0) % MCV 102.4 H 108.2 H D (80.0-100.0) fL MCH 36.7 H 36.3 H (25.0-35.0) pg Plt Count 88 L 77 L (150-450) k/uL Lymphocytes # 0.7 L (1.0-4.8) k/uL Sodium 134 L (137-145) mmol/L Carbon Dioxide 20 L (22-30) mmol/L BUN 31 H (9-20) mg/dL Creatinine 1.32 H (0.66-1.25) mg/dL Glucose 164 H (74-99) mg/dL Albumin 3.4 L (3.5-5.0) g/dL <Lyudmila Garcia - Last Filed: 02/25/21 18:33> Subjective I reviewed the documentation as provided by the GREGG above, who is the original author of this note. I agree with the documented assessment and plan, with the following changes: None Objective - Vital Signs Vital signs: Vital Signs Temp 98.3 F 02/25/21 07:29 Pulse 68 02/25/21 07:29 Resp 16 02/25/21 07:29 BP 121/74 02/25/21 07:29 Pulse Ox 98 02/25/21 07:29 Intake & Output 02/24/21 02/25/21 02/25/21 18:59 06:59 18:59 Intake Total 1236 1550 Output Total 45 Balance 1191 1550 Weight 147 kg 147 kg Intake: IV 901 250 Oral 1300 Blood Product 335 Platelet Pheresis Pas 335 Psoralen Unit [id number] Output: Estimated Blood Loss 45 Other: # Voids 1 - Labs CBC & Chem 7: 02/25/21 05:47 02/25/21 05:47 Labs: Abnormal Lab Results - Last 24 Hours (Table) 02/25/21 02/25/21 Range/Units 05:47 05:47 RBC 3.59 L (4.30-5.90) m/uL Hct 38.8 L (39.0-53.0) % MCV 108.2 H D (80.0-100.0) fL MCH 36.3 H (25.0-35.0) pg Plt Count 77 L (150-450) k/uL Lymphocytes # 0.7 L (1.0-4.8) k/uL Sodium 134 L (137-145) mmol/L Carbon Dioxide 20 L (22-30) mmol/L BUN 31 H (9-20) mg/dL Creatinine 1.32 H (0.66-1.25) mg/dL Glucose 164 H (74-99) mg/dL Albumin 3.4 L (3.5-5.0) g/dL
--- NOTE | 2021-02-25 13:24 | P.PN ---
Subjective Progress Note Date: 02/25/21 Principal diagnosis: Status post right total knee arthroplasty Patient evaluated today at bedside, is resting comfortably in his hospital chair. He did very well with physical therapy. His pain is well-controlled this time. He denies any headaches, lightheadedness, chest pain or shortness of breath. Objective - Vital Signs Vital signs: Vital Signs Temp 98.3 F 02/25/21 07:29 Pulse 68 02/25/21 07:29 Resp 16 02/25/21 07:29 BP 121/74 02/25/21 07:29 Pulse Ox 98 02/25/21 07:29 Intake & Output 02/24/21 02/25/21 02/25/21 18:59 06:59 18:59 Intake Total 1236 1550 Output Total 45 Balance 1191 1550 Weight 147 kg 147 kg Intake: IV 901 250 Oral 1300 Blood Product 335 Platelet Pheresis Pas 335 Psoralen Unit [id number] Output: Estimated Blood Loss 45 Other: # Voids 1 - Exam Right lower extremity: Incision is clean, dry, and intact. The foam dressing is in good condition. There is minimal soft tissue swelling and ecchymosis surrounding the medial and lateral aspects of the incision. Calf is soft, no tenderness with palpation. Plantar flexion, dorsiflexion, EHL, FHL are intact. Sensory exam to light touch throughout the extremity is intact, dorsal pedis pulses 2+. - Labs CBC & Chem 7: 02/25/21 05:47 02/25/21 05:47 Labs: Abnormal Lab Results - Last 24 Hours (Table) 02/24/21 02/25/21 02/25/21 Range/Units 12:26 05:47 05:47 RBC 3.59 L (4.30-5.90) m/uL Hct 38.8 L (39.0-53.0) % MCV 108.2 H D (80.0-100.0) fL MCH 36.3 H (25.0-35.0) pg Plt Count 88 L 77 L (150-450) k/uL Lymphocytes # 0.7 L (1.0-4.8) k/uL Sodium 134 L (137-145) mmol/L Carbon Dioxide 20 L (22-30) mmol/L BUN 31 H (9-20) mg/dL Creatinine 1.32 H (0.66-1.25) mg/dL Glucose 164 H (74-99) mg/dL Albumin 3.4 L (3.5-5.0) g/dL Assessment and Plan Assessment: Postoperative day 1 status post right total knee arthroplasty Plan: Pain control, plan for discharge home on both Austin and Lyrica GI and DVT prophylaxis, did discuss his internal medicine thrombocytopenia issue. We will utilize aspirin 325 mg twice a day Wound care instructions were discussed, this including icing and elevating Encourage incentive spirometer Home health services after discharge Medical recommendations Discharge planning: Patient will be discharged home today Time with Patient: Less than 30
--- NOTE | 2021-02-25 13:28 | P.DS ---
Providers Date of admission: 02/24/2021 Expected date of discharge: 02/25/21 Attending physician: David Morin Consults: 02/24/21 17:37 Consult Physician Routine Consulting Provider: Reji Vizcarra Consult Reason/Comments: Medical management Do you want consulting provider notified?: Yes Primary care physician: Venessa Kraus [facility] Hospital Course: Date of admission: 02/24/2021 Date of discharge: 02/25/2021 Admission diagnosis: Status post right total knee arthroplasty Discharge diagnosis: Same Attending physician: Dr. Morin Surgical procedures: Right total knee arthroplasty Brief history: Patient is a 65-year-old male with a history of progressive primary right knee osteoarthritis. At this point patient has failed conservative treatment measures and has opted to proceed with a elective right total knee arthroplasty. Hospital course: Details of patient's surgery can be found in operative report. Patient tolerated the procedure well and was subsequently transported to orthopedic floor. Patient's orthopeidc and medical care was provided daily. Patient had daily laboratory tests performed for evaluation of overall blood counts. Patient had daily physical therapy to include strengthening range of motion as well as education with walker ambulation. Patient was treated with Lovenox for their postoperative DVT prophylaxis during their inpatient stay. Patient was noted to have a relatively uneventful postoperative course. Patient reported satisfactory pain control with oral pain medications by postoperative day 0. Patient showed satisfactory progress with physical therapy. Patient moved steadily through the program and had no difficulty meeting the goals by postoperative day 1. Given patient's otherwise satisfactory course and having met physical therapy goals, plan is to discharge patient home on postoperative day 1. Discharge condition/disposition: Patient will be discharged home in stable condition. Discharge medications: Instructions are given on resumption of patient's normal daily medications per primary care recommendation, in addition patient will be prescribed Floyd 7.5 mg/325 mg, Lyrica 75 mg, Colace milligrams, aspirin 325 mg. Discharge instructions: 1. Wound care and infection precautions, keep incision dry and covered while showering, no lotions, creams, moisturizers. No soaking, tubs, pools, hottubs. Do not scrub over the incision. 2. Weight-bear as tolerated with walker / cane until follow-up. 3. Ice and elevate when necessary. Do not exceed 20 minutes per hour with ice pack. 4. Utilize compression sleeve until seen at first follow up appointment. 5. Visiting nursing care. 6. Home physical therapy. 7. Pain meds and anticoagulants per prescription. 8. Pain medication has potential to cause constipation. Increase oral fluid and fiber intake. Contact primary care provider if you have not had a bowel movement within 48 hours after discharge 9. No anti-inflammatory medication until discussed at first post operative visit, this including Motrin, Aleve, Mobic, Diclofenac. 10. Follow up in office at 2 weeks postop with Willie Gomez PA-C/Ermias Tong 11. Follow up with your primary care doctor 7-10 days after discharge. 12. Contact [facility] with any questions, . Procedures: Right total knee arthroplasty Patient Condition at Discharge: Good Plan - Discharge Summary Discharge Rx Participant: Yes New Discharge Prescriptions: New Folic Acid 1 mg PO DAILY #14 tablet Aspirin 325 mg PO BID #60 tab Thiamine [Vitamin B-1] 100 mg PO BID-W/MEALS #60 tab Multivitamin [Multivitamins Adult Gummies] 1 each PO DAILY #14 tablet Docusate [Colace] 100 mg PO DAILY #30 cap Pregabalin [Lyrica] 75 mg PO BID 14 Days #21 cap HYDROcodone/APAP 7.5-325MG [Floyd 7.5] 1 each PO Q6HR PRN #28 tab PRN Reason: Pain Continue Furosemide [Lasix] 80 mg PO DAILY QUEtiapine [SEROquel] 50 mg PO HS PRN PRN Reason: Insomnia Spironolactone 100 mg PO DAILY Carvedilol [Coreg] 12.5 mg PO BID Discharge Medication List Carvedilol [Coreg] 12.5 mg PO BID 02/20/21 [History] Furosemide [Lasix] 80 mg PO DAILY 02/20/21 [History] QUEtiapine [SEROquel] 50 mg PO HS PRN 02/20/21 [History] Spironolactone 100 mg PO DAILY 02/20/21 [History] Aspirin 325 mg PO BID #60 tab 02/25/21 [Rx] Docusate [Colace] 100 mg PO DAILY #30 cap 02/25/21 [Rx] Folic Acid 1 mg PO DAILY #14 tablet 02/25/21 [Rx] HYDROcodone/APAP 7.5-325MG [Floyd 7.5] 1 each PO Q6HR PRN #28 tab 02/25/21 [Rx] Multivitamin [Multivitamins Adult Gummies] 1 each PO DAILY #14 tablet 02/25/21 [Rx] Pregabalin [Lyrica] 75 mg PO BID 14 Days #21 cap 02/25/21 [Rx] Thiamine [Vitamin B-1] 100 mg PO BID-W/MEALS #60 tab 02/25/21 [Rx] Follow up Appointment(s)/Referral(s): [facility] [NON-STAFF] - (Please call [facility] once home to confirm your first visit for 02/26/21.) Venessa Kraus, PAC [Primary Care Provider] - 1 Week () Robin Gomez PAC [PHYSICIAN FRAME WIRER] - 03/14/21 8:40 am Patient Instructions/Handouts: *Surgery [facility] - On-Q Pain Pump Discharge Instructions, How to Use an Incentive Spirometer (DC), Joint Replacement Surgery (DC) Activity/Diet/Wound Care/Special Instructions: Orthopedic Discharge Instructions: 1. Wound care and infection precautions, keep incision dry and covered while showering, no lotions, creams, moisturizers. No soaking, pools, hot tubs. Do not scrub over incision. 2. Weight-bear as tolerated with walker / cane until follow-up. 3. Ice and elevate when necessary. Do not exceed 20 minutes per hour with ice pack. 4. Utilize compression sleeve until seen at first follow up appointment. 5. Pain meds and anticoagulants per prescription. 6. Pain medication has potential to cause constipation. Increase oral fluid and fiber intake. Contact primary care provider if you have not had a bowel movement within 48 hours after discharge. 7. No anti-inflammatory medication until discussed at first post operative visit, this including Motrin, Aleve, Mobic, Diclofenac. 8. Follow up in office at 2 weeks postop with Willie Gomez PA-C/Ermias Albarran PA-C 9. Follow up with your primary care doctor 7-10 days after discharge. 10. Contact [facility] with any questions, . Wound care instructions: 1. Okay to remove foam dressing on 03/03/2021 2. Keep incision covered and dry while showering Discharge Disposition: HOME WITH HOME HEALTH SERVICES
[2021-02-25] MEDS ORDERED: QUEtiapine 50 MG TAB PO PRN (21:00)
[2021-02-26 05:12] LABS: Folate, Serum 5.5 ng/mL (4.40-31.00)
== END 2021-02-25 14:53 | disposition home health service (06) ==
LOC: OR 11:24 → 4SSUR 20:20 → OR 02-25 14:53
PROVIDERS: ATTEND Orthopaedic Surgery
DX: M17.11 Unilateral primary osteoarthritis, right knee (principal); D69.59 Other secondary thrombocytopenia; D69.6 Thrombocytopenia, unspecified; I10 Essential (primary) hypertension; K70.30 Alcoholic cirrhosis of liver without ascites; M19.90 Unspecified osteoarthritis, unspecified site; M79.604 Pain in right leg; G47.33 Obstructive sleep apnea (adult) (pediatric); E66.01 Morbid (severe) obesity due to excess calories; Z20.822 Contact with and (suspected) exposure to COVID-19
CPT/HCPCS: 27447; 97161; 86900; 86901; 80053; 82607; 82746; 85025; 85027; 86850; 88300; 87635; 73560; C1776; C1713 ×2; P9073; J2250; J0171; J1100; J2710; J0690 ×3; J2405; J2001; J3010; J1885; J1650; J1170 ×2; J2795; J0330; J2704; J0735

== ENCOUNTER → 2024-10-31 | Outpatient (CLI) | payer OTHER ==
[2024-10-31 15:04] LABS: Basophils # (A) 0.04 X 10*3/uL (0.00-0.10); Basophils % (A) 0.8 %; Eosinophils # (A) 0.22 X 10*3/uL (0.04-0.35); Eosinophils % (A) 4.2 %; HCT 37.5 % (39.6-50.0); Lymphocytes # (A) 1.18 X 10*3/uL (0.90-5.00); Lymphocytes % (A) 22.3 %; MCHC 34.7 g/dL (32.0-37.0); MCV 98.2 FL (80.0-97.0); Mean Platelet Volume 10.9 FL (9.5-12.2); Monocytes # (A) 0.54 X 10*3/uL (0.20-1.00); Monocytes % (A) 10.2 %; NRBC Per 100 WBC 0 X 10*3/uL (0.00-0.01); Neutrophils # (A) 3.29 X 10*3/uL (1.80-7.70); Neutrophils % (A) 62.1 %; Platelet Count 90 X 10*3/uL (140-440); RBC 3.82 X 10*6/uL (4.40-5.60); RDW 13.7 % (11.5-14.5); WBC 5.29 X 10*3/uL (4.50-10.00)
[2024-10-31 15:19] LABS: Anion Gap 13.9 mmol/L (4.00-12.00); Carbon Dioxide 22.1 mmol/L (21.6-31.8); Potassium 4.2 mmol/L (3.5-5.5)
== END | disposition home or self-care (01) ==
LOC: LABPAT 11:36
PROVIDERS: ATTEND Orthopaedic Surgery
DX: Z01.812 Encounter for preprocedural laboratory examination (principal); G56.02 Carpal tunnel syndrome, left upper limb
CPT/HCPCS: 80051; 85025

== ENCOUNTER 2024-11-08 09:55 | Day surgery (SDC) | payer OTHER ==
--- NOTE | 2024-11-07 14:53 | HP ---
HISTORY AND PHYSICAL DATE OF SURGERY: 11/08/2024. HISTORY OF PRESENT ILLNESS: Frederic Olivia is a 69-year-old gentleman, seen with symptomatic left carpal tunnel syndrome, having failed conservative treatment measures. We discussed options. He elected to proceed with decompression of left median nerve. Consent was obtained. PAST MEDICAL HISTORY: Hypertension. SURGICAL HISTORY: Lumbar spine surgery, eye surgery. DAILY MEDICATIONS: 1. Carvedilol. 2. Furosemide. 3. Spironolactone. 4. Multivitamin. 5. Tylenol. ALLERGIES: None. SOCIAL HISTORY: Denies tobacco use. PHYSICAL EVALUATION OF THE LEFT HAND: He has a positive carpal compression and carpal Tinel's, exacerbating numbness, tingling throughout the median nerve distribution. He has some decreased sensation throughout the median nerve distribution. He has good perfusion distally. There is a good radial pulse present. IMAGING STUDIES: Radiographs of the left hand revealed mild osteoarthritis. EMG of the left upper extremity, carpal tunnel syndrome. IMPRESSION: Left carpal tunnel syndrome. PLAN: Decompression of the left median nerve. MMODL / IJN: [id number] /
[~2024-11-08 09:55] MED LIST changes: -ACETAMINOPHEN TAB 500 MG TAB PO PRN; -DEXAMETHASONE SOD PHOSPHATE 4 MG/ML 1 ML VIAL IV ONE; +HYDROmorphone 0.5 MG/0.5 ML SYRINGE IVP PRN; -LACTATED RINGERS 1,000 ML IV SCH; -MELOXICAM 7.5 MG TAB PO PRN; +MIDAZOLAM 2 MG/2 ML VIAL IV PRN; -ONDANSETRON 4 MG/2 ML VIAL IVP ONE; -TRANEXAMIC ACID 1,000 MG in SODIUM CHLORIDE 0.9% 100 ML IVPB PRN; -ceFAZolin 3 GM in SODIUM CHLORIDE 0.9% 100 ML IVPB PRN
[2024-11-08] MEDS: IV FLUID CONTINUATION 1,000 ML IV ONE (10:20)
[2024-11-08 10:22] VITALS: TEMP 98
[2024-11-08] MEDS: LACTATED RINGERS 1,000 ML IV SCH (10:31)
[2024-11-08] MEDS ORDERED: PROPOFOL 10 MG/ML 20 ML VIAL IV ONE (11:50)
[2024-11-08] MEDS ORDERED: MIDAZOLAM 2 MG/2 ML VIAL ONE (11:50)
[2024-11-08] MEDS ORDERED: fentaNYL (PF) 50 MCG/ML 2 ML AMP ONE (11:50)
[2024-11-08] MEDS: ceFAZolin 3 GM in SODIUM CHLORIDE 0.9% 100 ML IVPB PRN (11:54)
[2024-11-08] MEDS: BUPIVACAINE (PF) 0.25% 30 ML VIAL SQ ONE ×2 (11:58→12:12)
[2024-11-08 12:32] VITALS: RESP 16
--- NOTE | 2024-11-08 12:33 | P.OP ---
Date of Procedure: 11/08/24 Preoperative Diagnosis: Left carpal tunnel syndrome Postoperative Diagnosis: Left carpal tunnel syndrome Procedure(s) Performed: Decompression left median nerve Anesthesia: MAC, local Surgeon: David Morin Estimated Blood Loss (ml): 0 Pathology: none sent Condition: stable Disposition: PACU Indications for Procedure: 69-year-old patient seen with symptomatic left carpal tunnel syndrome. After having treatment options discussed, he elected to proceed with decompression l eft median nerve. Operative Findings: See description of procedure Description of Procedure: Patient was taken to the operative suite. He underwent IV sedation by the department of anesthesia. He received preoperative IV antibiotics. A well- padded tourniquet placed proximal left upper extremity. The left upper extremity was prepped and draped in the normal sterile orthopedic fashion. The proposed incision site was infiltrated with 8 cc quarter percent plain Marcaine. Once sufficient local analgesia was noted the extremity was elevated and the tourniquet was insufflated to 250. An incision was now made being at the distal volar wrist crease extending distally approximately 3 cm in line with the fourth metacarpal sharply through skin. Dissection is taken down through the palmar fascia to the transverse carpal ligament. I's made a small incision centrally in transverse carpal ligament. I completed the release proximally and distally with blunt Metzenbaums. We had complete release of the transverse carpal ligament with good decompression of the nerve. The wound was irrigated. There was good hemostasis. The skin margins were approximate nylon suture. Sterile dressings were applied. The tourniquet was now released with immediate capillary refill of all digits noted. The patient was then awakened, transferred to recovery in stable condition having tolerated procedure well.
[2024-11-08 12:47] VITALS: BP 115/52; PULSE 67
== END 2024-11-08 13:08 | disposition home or self-care (01) ==
LOC: OR 09:55
PROVIDERS: ATTEND Orthopaedic Surgery
DX: G56.02 Carpal tunnel syndrome, left upper limb (principal); I10 Essential (primary) hypertension; G47.33 Obstructive sleep apnea (adult) (pediatric); K74.60 Unspecified cirrhosis of liver; N28.9 Disorder of kidney and ureter, unspecified; F10.90 Alcohol use, unspecified, uncomplicated; Z99.89 Dependence on other enabling machines and devices; Z79.899 Other long term (current) drug therapy
CPT/HCPCS: 64721; J2250; J0690; J3010; J2704; J0665